=== PATIENT | female | born 1960 | race Hispanic/Latino ===

== ENCOUNTER 2024-01-30 10:44 | Emergency (ER) | payer BC ==
[~2024-01-30] VITALS: Ht 157.5 cm; Wt 62.6 kg
--- NOTE | 2024-01-30 11:21 | ERN ---
ED Note History of Present Illness Stated Complaint: DIZZINESS, LEFT EYE PAIN Chief Complaint: Dizzy/Light Headed Time Seen by MD: 11:14 Dictation: Patient is a 63-year-old female with a past medical history of hypertension hypercholesterolemia presents to the ED for dizziness and left eye pain. She states her dizziness has lasted an hour today and that when she checked her blood pressure this morning systolic was in the 150s. She does not take any medication for her blood pressure currently. She states her left eye pain has been present on and off for 2 months. She has trouble sleeping through the night and admits to feeling anxious due to her husbands medical condition. She denies any chest pain, shortness of breath, fevers or chills. She has some discomfort in the epigastric region. Allergies: Coded Allergies: No Known Allergies (Unverified Allergy, Unknown, 01/30/24) Past Medical History Past Medical History: High Cholesterol, Hypertension, Other Additional Past Medical Hx: GASTRITIS Surgical History: Other Surgical History Other: BACK SX Review of System Dictation Constitutional-no chills, weight loss/gain, fever Eyes-no injury, redness and discharge. left eye pain ENT-no injury, pain, swelling Cardiovascular no chest pain, palpitations, edema Respiratory no shortness of breath, cough, wheezing Abdomen/GI-no diarrhea, constipation, vomiting, nausea. pain in epigastric area Back no injury and pain Genitourinary no injury, bleeding and discharge Musculoskeletal/extremities no injury, deformity Skin no rash, discoloration Neuro-no weakness, numbness, tingling, seizures, tremors. frontal headache Psych-no suicidal ideation, homicidal ideation, hallucinations, depression, anxiety, memory loss Initial Vital Sign VS Vital Signs Date Time Temp Pulse Resp B/P (MAP) Pulse Ox O2 Delivery O2 Flow Rate FiO2 01/30/24 10:46 97.9 82 16 188/102 99 Room Air 0 01/30/24 11:24 21 Physical Exam Dictation General-patient is awake alert and oriented Head/neck-normocephalic, atraumatic. tenderness to palpation of ethmoid and frontal sinuses Eyes-PERRL, EOMI, vision at baseline Neck-trachea midline, supple, no nuchal rigidity Cardiovascular-RRR, normal S1/S2, no MRG is, no JVD Respiratory-no distress, wheezing, rales, rhonchi Abdomen-no tenderness, guarding, soft, nondistended Skin warm, dry, normal turgor, no rash Musculoskeletal/extremities pulses equal, no cyanosis Neuro-COA X 4, GCS 15, strength 5/5, CN 2-12 intact Psych-normal behavior, mood and affect normal Results (Laboratory/Radiology) Laboratory/Radiology Laboratory Tests Test 01/30/24 11:18 01/30/24 11:19 Influenza Type A Antigen Negative For Type A Influenza Type B Antigen Negative For Type B SARS-CoV-2, RNA, NAAT NEGATIVE SARS CoV-2 Group A Streptococcus Rapid negative (NEGATIVE) Urine Color COLORLESS (YELLOW) Urine Appearance CLEAR (CLEAR) Urine pH 7.0 (5.0-8.0) Urine Specific [place] 1.004 (1.001-1.031) Urine Protein NEGATIVE mg/dL (NEGATIVE) Urine Glucose (UA) NEGATIVE mg/dL (NEGATIVE) Urine Ketones NEGATIVE mg/dL (NEGATIVE) Urine Occult Blood NEGATIVE (NEGATIVE) Urine Nitrate NEGATIVE (NEGATIVE) Urine Bilirubin NEGATIVE mg/dL (NEGATIVE) Urine Urobilinogen 0.2 mg/dL (0.2-1.0) Urine Leukocyte Esterase NEGATIVE Estelle/uL EKG Comment: EKG obtained 01/30/2024 at 11:22:09 Sinus rhythm HR [address] elevations or depressions ED Course ED Course Orders Procedure Category Date Status Time Covid Rna Naat LAB 01/30/24 Complete 10:56 Influenza Type A & B, LAB 01/30/24 Complete Rapid 10:56 Rapid (Group A Strep) LAB 01/30/24 Complete 10:56 Dexamethasone 4mg/Ml PHA 01/30/24 Complete 1ml Vial (Dexametha 11:00 Urinalysis LAB 01/30/24 In Process W/Microscopic 10:56 12 Lead Ekg Tracing- EKG 01/30/24 Complete Technical 10:56 Pantoprazole 40mg Tab PHA 01/30/24 Complete (Protonix 40mg Tab 11:30 Current Medications Medications (Trade) Dose Ordered Sig/Tracy Route PRN Reason Start Time Stop Time Status Last Admin Dose Admin Dexamethasone Sodium Phosphate (dexaMETHasone 4MG/ML 1ML VIAL) 4 mg ONCE ONCE IM 01/30/24 11:00 01/30/24 11:01 DC 01/30/24 11:36 Pantoprazole Sodium (PROTonix 40MG TAB) 40 mg ONCE ONCE PO 01/30/24 11:30 01/30/24 11:31 DC 01/30/24 11:36 Vital Signs Date Time Temp Pulse Resp B/P (MAP) Pulse Ox O2 Delivery O2 Flow Rate FiO2 01/30/24 11:24 99.0 82 16 188/102 98 Room Air* 0 21 01/30/24 10:46 97.9 82 16 188/102 99 Room Air 0 Medical Decision Making [facility] INITIAL IMPRESSION Initial history and physical concerning for sinusitis, GERD Contributing medical problems: I have reviewed the triage nursing notes and vital signs. Initial plan: UA, swabs, EKG DATA REVIEW I have reviewed additional NN, repeat VS, and monitoring where indicated. Heart rate, blood pressure, and O2 saturation are acceptable. ED COURSE Interventions: Reassessment: DISPOSITION Final diagnostic impression: I discussed my findings, clinical impression and treatment recommendations with the patient. My final plan for disposition was made based upon -mild risk of complications and potential morbidity of the patient's condition. -Discussion with the patient regarding management options. [HOME] DX & DISP Disposition: Discharge Departure Impression: Primary Impression: Sinusitis Additional Impression: GERD (gastroesophageal reflux disease) Condition: Stable Scripts Loratadine (Loratadine) 10 Mg Tablet 1 TAB PO DAILY for allergy symptoms for 30 Days, #30 TAB 0 Refills Prov: CHRISTAL PEACE MD 01/30/24 Fluticasone Propionate (Flonase Nasal [place]) 50 Mcg/Actuation [place] 2 SPRAY NS DAILY, #16 GM 0 Refills Prov: CHRISTAL PEACE MD 01/30/24 Amoxicillin/Potassium Clav (Amox Tr-K Clv 875-125 mg Tab) 875 Mg-125 Mg Tablet 1 TAB PO BID for 10 Days, #20 TAB 0 Refills Prov: CHRISTAL PEACE MD 01/30/24 Additional Instructions: FOLLOW-UP WITH PRIMARY CARE PROVIDER IN 1 TO 2 DAYS. TAKE MEDICATIONS DIRECTED HERE IN THE EMERGENCY ROOM. OKAY TO CONTINUE HOME MEDICATIONS UNLESS OTHERWISE DISCUSSED DURING YOUR VISIT IN THE EMERGENCY ROOM TODAY. RETURN TO YOUR NEAREST EMERGENCY ROOM IF SYMPTOMS WORSEN OR IF THERE IS NO IMPROVEMENT. CALL 911 IF YOU NEED IMMEDIATE ASSISTANCE. TAKE TYLENOL [id number] NEEDED AND IF NO CONTRAINDICATIONS ARE PRESENT. INCREASE ORAL HYDRATION. A WOUND CULTURE OR URINE CULTURE WAS ORDERED HERE IN THE EMERGENCY ROOM DEPARTMENT PLEASE FOLLOW-UP WITH PRIMARY CARE PROVIDER AND ADVISE THEM TO GET REPEAT PORTS FROM OUR FACILITY. IF YOU HAD ANY KAYLEE WRAP/SPLINTS THAT WERE APPLIED HERE, PLEASE DO NOT REMOVE THEM UNTIL YOU SEE YOUR PRIMARY CARE OR SPECIALTY. REFERRALS: Referrals: MARCIAL LORD MD Time of Disposition: 12:33 LOI JOHNS MD Jan 30, 2024 11:21 CHRISTAL PEACE MD Jan 30, 2024 12:35
--- NOTE | 2024-01-30 11:24 | EKG ---
[facility] Test Date: 2024-01-30 Test Time: 11:22:09 Pat Name: LES SYLVESTER Department: ED Room: Gender: F Manager [employer]: [id number] : 1960 Requested By: CHRISTAL PEACE Order Number: [id number] Reading MD: Emanuel Garibay Measurements Intervals [place] Rate: 72 P: -15 [place]: 168 QRS: -28 QRSD: 89 T: 4 QT: 422 QTc: 460 Interpretive Statements Sinus rhythm Nonspecific T abnormalities, anterior leads No previous ECG available for comparison Electronically Signed On 01-31-2024 14:08:09 INTERPRETER DEAF by Emanuel Garibay Please click the below link to view image of tracing.
[2024-01-30] MEDS: PANTOPrazole 40 MG TAB DR PO ONE (11:36)
[2024-01-30] MEDS: dexaMETHasone SOD PHOSPHATE 4 MG/ML 1ML VIAL IM ONE (11:36)
[2024-01-30 12:17] LABS: RAPID GROUP A STREP negative (NEGATIVE)
[2024-01-30 12:21] LABS: SARS-CoV-2, RNA, NAAT NEGATIVE SARS CoV-2 (NEGATIVE)
[2024-01-30 12:25] LABS: APPEARANCE,URINE CLEAR (CLEAR); BILIRUBIN,URINE NEGATIVE (NEGATIVE); COLOR,URINE COLORLESS (YELLOW); GLUCOSE, URINE (UA) NEGATIVE (NEGATIVE); KETONES,URINE NEGATIVE (NEGATIVE); LEUKOCYTE ESTERASE ,URINE NEGATIVE Leu/uL (NEGATIVE); NITRATE,URINE NEGATIVE (NEGATIVE); OCCULT BLOOD,URINE NEGATIVE (NEGATIVE); PROTEIN,URINE NEGATIVE (NEGATIVE); UROBILINOGEN,URINE 0.2 mg/dL (0.2-1.0)
[2024-01-30 12:26] LABS: RBC,URINE 0-1 /HPF (0-1); SQUAMOUS EPITHELIAL CELL,UR RARE /HPF (0-2); WBC,URINE 0-1 /HPF (0-1)
[2024-01-30 12:27] LABS: INFLUENZA TYPE A Negative For Type A (NEGATIVE); INFLUENZA TYPE B Negative For Type B (NEGATIVE)
[2024-01-30 12:33] VITALS: BP 178/88; PULSE 78; RESP 16; TEMP 98.6; O2SAT 98
[2024-01-30] MEDS ORDERED: FLUT16H NS (12:34)
[2024-01-30] MEDS ORDERED: LORA10TA7 PO (12:34)
[2024-01-30] MEDS ORDERED: AMOX1TAB16 PO (12:34)
== END 2024-01-30 12:40 | disposition home or self-care (01) ==
LOC: EDH 10:44
DX: J32.9 Chronic sinusitis, unspecified (principal); K21.9 Gastro-esophageal reflux disease without esophagitis; E78.00 Pure hypercholesterolemia, unspecified; I10 Essential (primary) hypertension; Z20.822 Contact with and (suspected) exposure to COVID-19
CPT/HCPCS: 99284; 87635; 87880; 87804 ×2; 81001; 96372; 93005; J1100